=== PATIENT | female | born 1995 | race Hispanic/Latino ===

== ENCOUNTER 2019-11-09 12:42 | Emergency (ER) | payer MEDICAID, SELFPAY ==
[~2019-11-09] VITALS: Ht 165.1 cm; Wt 84.8 kg
--- NOTE | 2019-11-09 13:28 | REP ---
Right ankle series: Four views. History: Trauma. Findings: Four views right ankle demonstrate an obliquely oriented distal fibular metaphyseal fracture with 3-4 mm of posterior displacement. No tibial fracture is seen. Ankle mortise appears intact. There is an accessory ossicle at the navicula. Impression: Distal fibular fracture with associated swelling. 3 mm of posterior displacement. Electronically Signed by Ayaan Chirinos MD 11/09/2019 01:19 P
--- NOTE | 2019-11-09 13:44 | REP ---
RIGHT TIB/FIB SERIES: Four views. HISTORY: Trauma. FINDINGS: Four views of the right tibia and fibula demonstrate an obliquely oriented minimally displaced distal fibular fracture. No distal tibial fracture is seen. No proximal tibial or fibular fracture is appreciated. Study is otherwise unremarkable. IMPRESSION: Oblique fracture distal fibular metaphysis. No other fracture seen. Electronically Signed by Ayaan Chirinos MD 11/09/2019 08:46 P
[2019-11-09 15:25] VITALS: BP 116/80
[2019-11-14] MEDS ORDERED: TRAM50TA2 PO (12:46)
[2019-11-14] MEDS ORDERED: ALBU83IN INH (12:46)
== END 2019-11-09 15:26 | disposition home or self-care (01) ==
LOC: M ED 12:42
DX: S82.831A Other fracture of upper and lower end of right fibula, initial encounter for closed fracture (principal); X50.1XXA Overexertion from prolonged static or awkward postures, initial encounter; Y92.098 Other place in other non-institutional residence as the place of occurrence of the external cause; Y93.83 Activity, rough housing and horseplay; J45.909 Unspecified asthma, uncomplicated

== ENCOUNTER 2019-11-15 08:32 | Day surgery (SDC) | payer MEDICAID, SELFPAY ==
[~2019-11-15] VITALS: Ht 165.1 cm; Wt 83.9 kg
[~2019-11-15 08:32] MED LIST: ACETAMINOPHEN 1000MG 100ML IV BTL (OFIRMEV) (J0131 PER 10MG) As Ordered ONE; ALBU83IN INH; KETOROLAC 60 MG/2 ML VIAL (J1885) As Ordered ONE; LIDOCAINE 1% MDV 20ML VIAL SQ PRN; LIDOCAINE 2% INJ 100 MG/5 ML SYRINGE As Ordered ONE; MIDAZOLAM INJ 2 MG/2 ML VIAL (J2250) As Ordered ONE; ONDANSETRON 4MG/2ML VIAL (J2405) As Ordered ONE; ROCURONIUM BROMIDE 50 MG/5 ML VIAL As Ordered ONE; SUGAMMADEX SODIUM 500 MG/5 ML VIAL (BRIDION) As Ordered ONE; TRAM50TA2 PO; dexameTHASONE 4 MG/ML 1ML VIAL (J1100) As Ordered ONE; fentaNYL 100 MCG/2 ML INJECTION (J3010) As Ordered ONE; propofoL 200 MG/20 ML VIAL As Ordered ONE
[2019-11-15] MEDS ORDERED: dexameTHASONE 10 MG/1 ML VIAL PRES.FREE (J1100) ONE (08:33)
[2019-11-15] MEDS ORDERED: ROPIvacaine 0.5% 30 ML INJECTION (J2795 PER 1MG) ONE (08:33)
[2019-11-15] MEDS ORDERED: EPINEPHrine INJ 1 MG/ML 1ML VIAL ONE (08:33)
[2019-11-15] MEDS ORDERED: ceFAZolin SOD 2 GM in IV 1 EA IV ONE (09:00)
[2019-11-15] MEDS ORDERED: LR 1,000 ML IV ONE (09:00)
[2019-11-15] MEDS ORDERED: LIDOCAINE 2% INJ 100 MG/5 ML SDV (FOR ANES.) As Ordered ONE (09:20)
[2019-11-15] MEDS ORDERED: MIDAZOLAM INJ 2 MG/2 ML VIAL (J2250) As Ordered ONE (09:42)
[2019-11-15] MEDS ORDERED: fentaNYL 100 MCG/2 ML INJECTION (J3010) As Ordered ONE (09:42)
[2019-11-15] MEDS ORDERED: MIDAZOLAM INJ 2 MG/2 ML VIAL (J2250) IV ONE ×2 (09:59→10:45)
[2019-11-15] MEDS ORDERED: fentaNYL 100 MCG/2 ML INJECTION (J3010) IV ONE (09:59)
[2019-11-15] MEDS: fentaNYL 100 MCG/2 ML INJECTION (J3010) IV PRN ×4 (12:55→13:10)
[2019-11-15] MEDS: PERCOCET 5MG/325MG TAB PO PRN ×2 (12:55→14:05)
[2019-11-15] MEDS ORDERED: ONDANSETRON 4MG/2ML VIAL (J2405) IV PRN (13:00)
[2019-11-15] MEDS ORDERED: METOCLOPRAMIDE INJ 10MG/2ML VIAL (J2765) IV PRN (13:00)
[2019-11-15] MEDS ORDERED: LR 1,000 ML IV SCH ×2 (13:00→14:00)
[2019-11-15] MEDS ORDERED: PERCOCET 5MG/325MG TAB As Ordered ONE (14:02)
[2019-11-15] MEDS ORDERED: MORPHINE 2 MG/ML 1ML VIAL (J2270) As Ordered ONE ×2 (14:02→14:10)
[2019-11-15] MEDS: MORPHINE 2 MG/ML 1ML VIAL (J2270) IV PRN ×2 (14:05→14:10)
--- NOTE | 2019-11-15 14:10 | REP ---
Right ankle: Seven views. History: Intraoperative imaging. 41 seconds of fluoroscopy time is reported. Comparison is made with ankle radiographs from November 09, 2019. Findings: A sequence of seven last image hold fluoroscopically obtained spot radiographs of the ankle document open reduction internal fixation distal fibular fracture. Electronically Signed by Ayaan Chirinos MD 11/15/2019 04:57 P
--- NOTE | 2019-11-15 14:19 | RO ---
DATE OF PROCEDURE: 11/15/2019 PREOPERATIVE DIAGNOSIS: Right ligamentous SER IV ankle fracture. POSTOPERATIVE DIAGNOSIS: Right ligamentous SER IV ankle fracture. PROCEDURE: Open reduction internal fixation (ORIF) right lateral malleolus. SURGEON: Ivanna Whipple MD ASSIST: None. ANESTHESIA: General endotracheal with popliteal nerve block. ESTIMATED BLOOD LOSS: 25 mL. COMPLICATIONS: None. CONDITION: Stable to recovery. IMPLANTS: Synthes six-hole one third tubular plate with associated 3.5 mm and 4.0 mm screws. INDICATIONS: Kyara Alcaraz is a 24-year-old female status post a mechanical fall resulting in a right ankle fracture. The patient demonstrated widening of her ankle mortise on gravity stress views and non-weightbearing views. She elected for surgery. Risks and benefits were discussed with her in detail and include, but are not limited to, infection, damage to nerves and blood vessels, continued pain and stiffness, need for additional procedures. Informed consent was obtained in the office. PROCEDURE: Patient was met in the preoperative holding area where her right lower extremity was marked as the correct operative site. She was taken to the postanesthesia care unit (PACU) and underwent a nerve block by the anesthesia team. She was then taken to the operating room where she was placed in the supine position on the operating room table. Bony prominences were well padded. She underwent general anesthesia. She received antibiotics within 60 minutes prior to incision. A well padded tourniquet was placed on the right upper thigh. The right lower extremity was then prepped and draped in a normal sterile fashion. An official time out was held where the correct patient, operative extremity and procedure were verified. A 6 inch Esmarch was used to exsanguinate the leg and tourniquet was inflated to 250 mmHg. Incision was made laterally over the distal fibula. Care was taken to avoid the superficial peroneal nerve. Periosteum was incised and the fracture was isolated. It was debrided of hematoma and soft callus that had started to form. Fracture was reduced with a pointed reduction clamp and held in place with a 0.062 K-wire. Reduction was confirmed on AP, oblique and lateral views. A 3.5 mm lag screw was placed across the fracture with good compression. A 6 hole plate was then selected and placed along the lateral aspect of the bone. It was secured proximally with 3.5 mm screws and distally with 4.0 mm cancellous screws. Final x-rays were performed in AP, lateral and oblique views and found to be satisfactory. External rotation stress test and a Cotton exam were performed and found to be negative. Copious irrigation was performed. The periosteum was closed with #2-0 Vicryl and soft tissues were closed with #3-0 Vicryl. Skin was closed with #3-0 nylon. The patient was placed into a well padded splint. She was extubated and transferred to the recovery room in stable condition. PLAN: Patient will be non-weightbearing for 6 weeks. She will be on aspirin for deep vein thrombosis (DVT) prophylaxis. I will see her back in 2 weeks for suture removal and cast change. BINA
[2019-11-15 15:25] VITALS: BP 128/78
== END 2019-11-15 15:25 | disposition home or self-care (01) ==
LOC: M SDC 08:32
PROVIDERS: ATTEND Orthopaedic Surgery
DX: S82.61XA Displaced fracture of lateral malleolus of right fibula, initial encounter for closed fracture (principal); W19.XXXA Unspecified fall, initial encounter; Y92.89 Other specified places as the place of occurrence of the external cause; D64.9 Anemia, unspecified; K59.00 Constipation, unspecified; J45.909 Unspecified asthma, uncomplicated; F41.9 Anxiety disorder, unspecified; Z79.891 Long term (current) use of opiate analgesic; Z91.040 Latex allergy status
CPT/HCPCS: 27792; 64450; 76000; 81025; C1713; J0131; J0690; J1100; J1885; J2250; J2270; J2405; J2795; J3010

== ENCOUNTER 2019-11-22 14:26 | Emergency (ER) | payer MEDICAID, SELFPAY ==
[~2019-11-22] VITALS: Ht 165.1 cm; Wt 83.0 kg
[~2019-11-22 14:26] MED LIST changes: -ACETAMINOPHEN 1000MG 100ML IV BTL (OFIRMEV) (J0131 PER 10MG) As Ordered ONE; -KETOROLAC 60 MG/2 ML VIAL (J1885) As Ordered ONE; -LIDOCAINE 1% MDV 20ML VIAL SQ PRN; -LIDOCAINE 2% INJ 100 MG/5 ML SYRINGE As Ordered ONE; -MIDAZOLAM INJ 2 MG/2 ML VIAL (J2250) As Ordered ONE; -ONDANSETRON 4MG/2ML VIAL (J2405) As Ordered ONE; -ROCURONIUM BROMIDE 50 MG/5 ML VIAL As Ordered ONE; -SUGAMMADEX SODIUM 500 MG/5 ML VIAL (BRIDION) As Ordered ONE; -dexameTHASONE 4 MG/ML 1ML VIAL (J1100) As Ordered ONE; -fentaNYL 100 MCG/2 ML INJECTION (J3010) As Ordered ONE; -propofoL 200 MG/20 ML VIAL As Ordered ONE
[2019-11-22] MEDS ORDERED: COLA100C5 PO ×2 (14:36→19:17)
[2019-11-22] MEDS ORDERED: OXYC-517 (14:36)
--- NOTE | 2019-11-22 15:35 | REP ---
KUB ABDOMEN AND PELVIS: Two KUB films of abdomen and pelvis performed. No bowel obstruction is seen, with no dilated small bowel loops identified. Moderate fecal material is seen in the transverse, left and rectosigmoid colon. Several phleboliths are seen in the pelvis. There is mild curvature of the lumbar spine convex to the left. Electronically Signed by Vinod Fraser MD 11/23/2019 12:37 P
[2019-11-22] MEDS ORDERED: FLEET ENEMA PR STA (17:13)
[2019-11-22] MEDS ORDERED: PROMETHAZINE INJ 25 MG/ML VIAL (J2550) IM ONE (17:45)
[2019-11-22] MEDS ORDERED: METOCLOPRAMIDE INJ 10MG/2ML VIAL (J2765) IV ONE (18:30)
[2019-11-22] MEDS ORDERED: KETOROLAC 30 MG/ML VIAL (J1885) IV ONE (18:30)
[2019-11-22] MEDS ORDERED: NS 1,000 ML IV ONE (18:30)
[2019-11-22] MEDS ORDERED: FLEET OIL RETENTION ENEMA PR PRN (18:45)
[2019-11-22 19:24] VITALS: BP 131/75
== END 2019-11-22 19:30 | disposition home or self-care (01) ==
LOC: M ED 14:26
DX: K59.00 Constipation, unspecified (principal); J45.909 Unspecified asthma, uncomplicated; Z79.899 Other long term (current) drug therapy; Z79.891 Long term (current) use of opiate analgesic
CPT/HCPCS: 74018; 96372; 96374; 96375; 99284; J1885; J2765

== ENCOUNTER 2019-11-24 17:54 | Emergency (ER) | payer MEDICAID, SELFPAY ==
[~2019-11-24] VITALS: Ht 165.1 cm; Wt 81.5 kg
[~2019-11-24 17:54] MED LIST changes: +COLA100C5 PO; +OXYC-517
[2019-11-24 19:42] VITALS: BP 141/75
== END 2019-11-24 19:45 | disposition home or self-care (01) ==
LOC: M ED 17:54
DX: Z47.89 Encounter for other orthopedic aftercare (principal); F41.9 Anxiety disorder, unspecified; J45.909 Unspecified asthma, uncomplicated; Z79.51 Long term (current) use of inhaled steroids; Z79.899 Other long term (current) drug therapy; Z91.040 Latex allergy status

== ENCOUNTER 2022-03-28 14:02 | Emergency (ER) | payer MEDICAID ==
[~2022-03-28] VITALS: Ht 165.1 cm; Wt 100.0 kg
[~2022-03-28 14:02] MED LIST changes: +ALBU2.5V10 INH; -ALBU83IN INH
[2022-03-28 14:37] LABS: HEMATOCRIT 41.6 % (36.0-47.0); HEMOGLOBIN 13.2 g/dl (12.0-15.5); MEAN CORPUSCULAR HEMOGLOBIN 27.3 pg (27.0-33.0); MEAN CORPUSCULAR HGB CONC 31.7 g/dl (32.0-36.5); MEAN CORPUSCULAR VOLUME 86.1 fl (80.0-96.0); PLATELET COUNT, AUTOMATED 322 10^3/uL (150-450); RED BLOOD COUNT 4.83 10^6/uL (4.00-5.40); WHITE BLOOD COUNT 10.1 10^3/uL (4.0-10.0)
[2022-03-28 15:00] LABS: HCG, SERUM QUALITATIVE NEGATIVE (NEGATIVE)
[2022-03-28 15:04] LABS: RSV AMPLIFICATION NEGATIVE (NEGATIVE)
[2022-03-28 15:10] LABS: ALBUMIN 3.6 GM/DL (3.2-5.2); ALT/SGPT 26 U/L (12-78); BILIRUBIN,DIRECT 0.1 MG/DL (0.0-0.2); BILIRUBIN,TOTAL 0.4 MG/DL (0.2-1.0); BLOOD UREA NITROGEN 10 MG/DL (7-18); CALCIUM LEVEL 9.7 MG/DL (8.5-10.1); CARBON DIOXIDE LEVEL 26 MEQ/L (21-32); CHLORIDE LEVEL 109 MEQ/L (98-107); CREATININE FOR GFR 0.94 MG/DL (0.55-1.30); ETHYL ALCOHOL (ETHANOL) < 0.003 % (0.000-0.010); GLOMERULAR FILTRATION RATE > 60.0 (>60); GLUCOSE, FASTING 99 MG/DL (70-100); POTASSIUM SERUM 4.3 MEQ/L (3.5-5.1); SALICYLATE LEVEL 3.6 MG/DL (5.0-30.0); SODIUM LEVEL 140 MEQ/L (136-145); TOTAL PROTEIN 7.6 GM/DL (6.4-8.2)
[2022-03-28 15:11] LABS: ACETAMINOPHEN LEVEL < 2.0 UG/ML (10.0-30.0)
[2022-03-28 15:45] LABS: AMPHETAMINES LEVEL URINE NEGATIVE (NEGATIVE); BARBITURATES URINE NEGATIVE (NEGATIVE); BENZODIAZEPINES URINE NEGATIVE (NEGATIVE); CANNABINOIDS URINE POSITIVE (NEGATIVE); COCAINE METABOLITE URINE NEGATIVE (NEGATIVE); METHADONE URINE NEGATIVE (NEGATIVE); OPIATES URINE NEGATIVE (NEGATIVE); PHENCYCLIDINE URINE NEGATIVE (NEGATIVE)
[2022-03-28 19:53] VITALS: BP 136/84
== END 2022-03-28 20:44 | disposition home or self-care (01) ==
LOC: M ED 14:02
DX: F43.0 Acute stress reaction (principal); F41.9 Anxiety disorder, unspecified; R45.851 Suicidal ideations; R45.850 Homicidal ideations; Z91.51 Personal history of suicidal behavior

== ENCOUNTER 2022-12-22 12:04 | Day surgery (SDC) | payer OTHER ==
[~2022-12-22] VITALS: Ht 165.1 cm; Wt 106.5 kg
[~2022-12-22 12:04] MED LIST changes: +ALBU90AE IH
[2022-12-22] MEDS ORDERED: propofoL 200 MG/20 ML VIAL As Ordered ONE ×2 (13:38→13:54)
[2022-12-22] MEDS ORDERED: LIDOCAINE 2% 100MG/5ML SDV (FOR ANES.) As Ordered ONE (13:38)
[2022-12-22 14:17] VITALS: BP 113/61
== END 2022-12-22 14:21 | disposition home or self-care (01) ==
LOC: M OPP 12:04
PROVIDERS: ATTEND Internal Medicine Gastroenterology
DX: R10.31 Right lower quadrant pain (principal); Z79.52 Long term (current) use of systemic steroids; J45.909 Unspecified asthma, uncomplicated; Z91.040 Latex allergy status